=== PATIENT | male | born 1980 | race Caucasian/White ===

== ENCOUNTER 2022-11-03 03:56 | Day surgery (SDC) | payer OTHER ==
[2022-11-01 17:45] VITALS: BMI 31.7
[~2022-11-03 03:56] MED LIST: BACITRACIN ZINC 15 GM TUBE TOPICAL OINTMENT TP ONE; LIDOCAINE 1%/EPI 1:100000 (20 ML MULTI DOSE VIAL) IJ ONE; OFLOXACIN 0.3% OPHTHALMIC SOLUTION 5 ML BOTTLE AD ONE; OXYMETAZOLINE 0.05% NASAL SOLUTION 15 ML BOTTLE NS ONE; THROMBIN (BOVINE) 5,000 UNIT VIAL TP ONE
[2022-11-03] MEDS ORDERED: BACITRACIN ZINC 15 GM TUBE TOPICAL OINTMENT ONE (07:24)
[2022-11-03] MEDS ORDERED: DEXMEDETOMIDINE HCL 200 MCG/2 ML IVPB ONE (07:43)
[2022-11-03] MEDS ORDERED: ACETAMINOPHEN INJECTION 100 ML IVPB ONE (07:44)
[2022-11-03] MEDS ORDERED: PROPOFOL 60 ML ONE (07:45)
[2022-11-03] MEDS ORDERED: LIDOCAINE HCL/PF 2% SDV 5ML VIAL ONE (07:45)
[2022-11-03] MEDS ORDERED: MIDAZOLAM HCL 2 MG/2 ML SINGLE DOSE VIAL ONE ×2 (07:45→11:41)
[2022-11-03] MEDS ORDERED: SUCCINYLCHOLINE CHLORIDE 200 MG/10 ML SYRINGE ONE (07:45)
[2022-11-03] MEDS ORDERED: THROMBIN (BOVINE) 5,000 UNIT VIAL TP ONE ×2 (08:10→10:00)
[2022-11-03] MEDS ORDERED: LIDOCAINE 1%/EPI 1:100000 (20 ML MULTI DOSE VIAL) IJ ONE ×2 (08:30)
[2022-11-03] MEDS ORDERED: OFLOXACIN 0.3% OPHTHALMIC SOLUTION 5 ML BOTTLE AD ONE (10:48)
[2022-11-03] MEDS ORDERED: BACITRACIN ZINC 15 GM TUBE TOPICAL OINTMENT TP ONE (11:00)
[2022-11-03] MEDS ORDERED: ONDANSETRON 4 MG/2 ML VIAL IVPUSH PRN (11:57)
[2022-11-03] MEDS ORDERED: LACTATED RINGERS SOLUTION 1,000 ML IV SCH (12:00)
[2022-11-03 14:33] VITALS: RESP 16
[2022-11-03] MEDS ORDERED: oxyCODONE HCL 5 MG TABLET ONE (14:35)
[2022-11-03] MEDS ORDERED: oxyCODONE HCL 5 MG TABLET PO ONE (14:50)
[2022-11-03 16:02] VITALS: BP 113/69; PULSE 75; TEMP 97.8
== END 2022-11-03 16:07 | disposition home or self-care (01) ==
LOC: JASUSAT 03:56
PROVIDERS: ATTEND Otolaryngology
PROC: 09U507Z Supplement Right Middle Ear with Autologous Tissue Substitute, Open Approach (ICD-10-PCS; principal; 2022-11-03 08:00)
PROC: 09B0XZZ Excision of Right External Ear, External Approach (ICD-10-PCS; 2022-11-03 08:00)
DX: H90.8 Mixed conductive and sensorineural hearing loss, unspecified (principal)
CPT/HCPCS: 94760